=== PATIENT | female | born 1995 ===

== ENCOUNTER 2021-03-21 08:02 | Outpatient (REF) | payer BC, SELFPAY ==
--- NOTE | 2021-03-21 15:30 | PAPFT_PTH ---
PATIENT: Hitesh Frey LOC: [facility] U#:[id number] AGE/SX: 26/F ROOM: RE03/21/[address]: Kaelyn Mayes : 1995 BED: DIS: 03/21/2021 SPEC #: [id number] RECD: 03/24/21 12:52 STATUS: CASSIDY REQ #: [id number] NIKITA: 03/21/21 15:[address]: Kaelyn Mayes DEPT: [facility] Cytology RECD BY: Cyndi oPtts ENTERED: 03/24/21 12:53 SP TYPE: PAPFT OTHR DR: Unknown,Unknown Tissues: 1 - CX/ENDOCX FOR PAP SMEARS Procedures: PAP THIN PREP/[facility] Screening Comments: [id number] (CHLAMYDIA/GC)
[2021-03-25 15:14] LABS: Chlamydia Result Negative (Negative); GC Result Negative (Negative)
== END 2021-03-21 08:03 | disposition home or self-care (01) ==
LOC: LBN 08:02
PROVIDERS: Visit Provider Naturopath
DX: Z11.3 Encounter for screening for infections with a predominantly sexual mode of transmission (principal); Z12.4 Encounter for screening for malignant neoplasm of cervix; Z01.419 Encounter for gynecological examination (general) (routine) without abnormal findings
CPT/HCPCS: 87491; 87591; 88142